=== PATIENT | female | born 1970 | race Caucasian/White ===

== ENCOUNTER 2018-01-06 16:02 | Inpatient (IN) | payer OTHER ==
[~2018-01-06] VITALS: Ht 170.2 cm; Wt 90.7 kg
[2018-02-01] MEDS ORDERED: TOPROL XL25 M1 PO (10:49)
[2018-02-01] MEDS ORDERED: COZAAR50 MG PO (10:49)
[2018-02-04] MEDS ORDERED: MIRALAX17 GM PO (13:25)
[2018-02-04] MEDS ORDERED: PERCOCET 5-3251 EACH PO (13:25)
[2018-02-04] MEDS ORDERED: NEURONTIN300 MG PO (13:25)
== END 2018-02-05 13:24 | disposition home or self-care (01) | DRG 355 ==
LOC: SURH 02-02 10:45 → O/R 02-02 11:52 → SURH 02-02 11:52
PROVIDERS: Surgery
PROC: 0KXL4Z6 Transfer Left Abdomen Muscle, Transverse Rectus Abdominis Myocutaneous Flap, Percutaneous Endoscopic Approach (ICD-10-PCS; 2018-02-02)
PROC: 0KXK4Z6 Transfer Right Abdomen Muscle, Transverse Rectus Abdominis Myocutaneous Flap, Percutaneous Endoscopic Approach (ICD-10-PCS; 2018-02-02)
PROC: 0WUF4JZ Supplement Abdominal Wall with Synthetic Substitute, Percutaneous Endoscopic Approach (ICD-10-PCS; principal; 2018-02-02 10:45)
DX: K43.0 Incisional hernia with obstruction, without gangrene (principal); I10 Essential (primary) hypertension; K21.9 Gastro-esophageal reflux disease without esophagitis; N20.0 Calculus of kidney; J32.8 Other chronic sinusitis

== ENCOUNTER 2018-01-18 07:34 | Outpatient (CLI) | payer OTHER | END 2018-01-18 08:16 | disposition home or self-care (01) | LOC: LAB 07:34 → RAD 07:34 | DX: R10.9 Unspecified abdominal pain (principal); K43.2 Incisional hernia without obstruction or gangrene ==